=== PATIENT | male | born 1940 | race African-American/Black ===

== ENCOUNTER 2017-01-10 16:27 | Emergency (ER) | payer OTHER ==
[~2017-01-10] VITALS: Ht 167.6 cm; Wt 80.0 kg
[2017-01-10 16:30] VITALS: BP 131/76
== END 2017-01-10 17:18 | disposition left against medical advice (07) ==
LOC: ER 16:27
DX: R41.82 Altered mental status, unspecified (principal); Z53.21 Procedure and treatment not carried out due to patient leaving prior to being seen by health care provider